=== PATIENT | male | born 1995 | race Caucasian/White ===

== ENCOUNTER 2019-12-21 11:27 | Emergency (ER) | payer OTHER, SELFPAY ==
[2019-12-21 11:39] VITALS: BP 155/76; PULSE 103; RESP 18; TEMP 37; O2SAT 99; BMI 22.2
--- NOTE | 2019-12-21 11:46 | ED.ABDPAIN ---
HPI - Abdominal Pain <KSUH Singleton - Last Filed: 12/21/19 13:29> General Chief Complaint: Abdominal Pain Stated Complaint: Stomach pains x5 days comes & goes Time Seen by Provider: 12/21/19 11:32 Source: patient Mode of arrival: Ambulatory Limitations: no limitations History of Present Illness HPI narrative: 24yo male presents to the emergency department complaining of diffuse ?stomach-ache for the past 7 days. 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 However, the pain resolved after 2 days and he developed a generalized intermittent stomach discomfort with 2 days of intermittent diarrhea. Patient states he does not have any pain at this time. When it does occur, sometimes it does radiate down to his right side of his groin. Patient states that the pain is worse at midnight and in the morning, resolved after eating food. He denies any vomiting, nausea, chest pain, shortness of breath, cough, fever, scrotal swelling, scrotal pain, penile discharge, dizziness, or any other concerns. Patient denies any abdominal surgery or history of abdominal complaints. Related Data Previous Rx's Medication Instructions Recorded famotidine [Pepcid] 20 mg PO BEDTIME #14 tab 12/21/19 Allergies Allergy/AdvReac Type Severity Reaction Status Date / Time No Known Drug Allergies Allergy Verified 12/21/19 11:39 Review of Systems <KUSH Singleton - Last Filed: 12/21/19 13:29> Review of Systems Narrative: REVIEW OF SYSTEMS: GENERAL: Denies fever or chills. HENT: No head trauma. EYES: No vision changes. CARDIOVASCULAR: No chest pain. RESPIRATORY: No shortness of breath or cough. GASTROINTESTINAL: Complains of diffuse intermittent abdominal pain and diarrhea, see HPI GENITOURINARY: No flank pain, dysuria, or penile discharge MUSCULOSKELETAL: No trauma. INTEGUMENTARY: No rash, lesions, or pruritus. NEURO: No headaches. Patient History <KUSH Singleton - Last Filed: 12/21/19 13:29> Medical History No significant medical problems (Acute) Social History Smoking Status: Never smoker Smoking Status: Never smoker alcohol intake frequency: a few times a month Substance Use Type: marijuana Exam <KUSH Singleton - Last Filed: 12/21/19 13:29> Initial Vital Signs Initial Vital Signs: Vital Signs Temperature 98.6 F 12/21/19 11:39 Pulse Rate 103 H 12/21/19 11:39 Respiratory Rate 18 12/21/19 11:39 Blood Pressure 155/76 H 12/21/19 11:39 Pulse Oximetry 99 12/21/19 11:39 PHYSICAL EXAMINATION: GENERAL: Well groomed, alert, and cooperative. Answers questions promptly and appropriately. Vital signs noted. HENT: Normocephalic, atraumatic. Hearing intact. Oral mucosa is pink and moist. EYES: Conjunctiva pink, sclera white, no periorbital swelling. CARDIOVASCULAR: S1 and S2 sounds normal. Regular rate and rhythm, no murmurs, clicks, or bruits. No pedal edema. RESPIRATORY: Normal respiratory rate, trachea midline, airway patent. No stridor, nasal flaring or accessory muscle use. Lungs are clear in all [place] without wheeze, rhonchi, or crackles. GASTROINTESTINAL: Bowel sounds normoactive. Abdomen is soft and non-tender. No organomegaly, no palpable masses. GENITALURINARY: No flank tenderness. MUSCULOSKELETAL: Normal gait and coordination. Equal tone and mass bilaterally. EXTREMITIES: CMS intact, no pedal edema. SKIN: Warm, dry, soft, appropriate color for ethnicity. No lesions, rashes, or wounds to visualized areas. NEURO: Alert and Oriented X 3. Good coordination. No ataxia, or sensory deficits, or cognitive issues. PSYCH: Patient has a slightly anxious affect. Reports that he is nervous when he has to see the doctor. <Walker Marcum MD - Last Filed: 12/21/19 18:59> Initial Vital Signs Initial Vital Signs: Vital Signs Temperature 98.6 F 12/21/19 11:39 Pulse Rate 103 H 12/21/19 11:39 Respiratory Rate 18 12/21/19 11:39 Blood Pressure 155/76 H 12/21/19 11:39 Pulse Oximetry 99 12/21/19 11:39 Course <KUSH Singleton - Last Filed: 12/21/19 13:29> Course Course Narrative: Patient initially given IV fluids. Patient re-evaluated on 1250: Patient continued to deny pain, re-examination of abdomen was nontender which was consistent with original examination. Discussed ordering GI cocktail and Protonix. 1320: Patient reported he still has not had any pain. Agreed with plan to discharge with medications and follow-up. Orders Ordered: ED Orders 12/21/19 11:50 Complete Blood Count AUTO DIFF Stat Comprehensive Metabolic Panel Stat Lipase Stat Discontinued Medications Al Hydrox/Mg Hydrox/Simethicone 20 ml/ Lidocaine HCl 15 ml 0 ml PO NOW ONE Stop: 12/21/19 12:42 Last Admin: 12/21/19 12:57 Dose: 35 ml Documented by: KAROLINE Sodium Chloride (Normal Saline 0.9%) 1,000 mls @ 1,000 mls/hr IV BOLUS ONE Stop: 12/21/19 12:44 Last Infusion: 12/21/19 13:12 Dose: 0 mls/hr Documented by: Admin: 12/21/19 12:03 Dose: 1,000 mls/hr Documented by: TWAN Pantoprazole Sodium (Protonix) 40 mg IV NOW ONE Stop: 12/21/19 12:52 Last Admin: 12/21/19 12:57 Dose: 40 mg Documented by: KAROLINE Consultations Consultation #1: [id number] Marcum, discuss treating within acid reducing medication and discharging patient with close follow-up. Vital Signs Vital signs: Vital Signs - 8 hr 12/21/19 11:39 12/21/19 12:30 12/21/19 13:32 Temperature 98.6 F Pulse Rate 103 H 76 82 Respiratory Rate 18 18 16 Blood Pressure 155/76 H 128/61 Blood Pressure [Left Arm] 127/67 Pulse Oximetry 99 99 99 <Walker Marcum MD - Last Filed: 12/21/19 18:59> Orders Ordered: ED Orders 12/21/19 11:50 Complete Blood Count AUTO DIFF Stat Comprehensive Metabolic Panel Stat Lipase Stat Discontinued Medications Al Hydrox/Mg Hydrox/Simethicone 20 ml/ Lidocaine HCl 15 ml 0 ml PO NOW ONE Stop: 12/21/19 12:42 Last Admin: 12/21/19 12:57 Dose: 35 ml Documented by: KAROLINE Sodium Chloride (Normal Saline 0.9%) 1,000 mls @ 1,000 mls/hr IV BOLUS ONE Stop: 12/21/19 12:44 Last Infusion: 12/21/19 13:12 Dose: 0 mls/hr Documented by: Admin: 12/21/19 12:03 Dose: 1,000 mls/hr Documented by: TWAN Pantoprazole Sodium (Protonix) 40 mg IV NOW ONE Stop: 12/21/19 12:52 Last Admin: 12/21/19 12:57 Dose: 40 mg Documented by: KAROLINE Vital Signs Vital signs: Vital Signs - 8 hr 12/21/19 11:39 12/21/19 12:30 12/21/19 13:32 Temperature 98.6 F Pulse Rate 103 H 76 82 Respiratory Rate 18 18 16 Blood Pressure 155/76 H 128/61 Blood Pressure [Left Arm] 127/67 Pulse Oximetry 99 99 99 MDM - Abdominal Pain <KUSH Singleton - Last Filed: 12/21/19 13:29> Medical Records Attestation: I reviewed the patient's medical records. Lab Data Attestation: I reviewed the patient's lab results. Result diagrams: 12/21/19 11:50 12/21/19 11:50 Labs: Lab Results 12/21/19 12/21/19 Range/Units 11:50 11:50 WBC 9.8 (4.5-11.0) X10^3/uL RBC 4.81 (4.5-5.9) X10^6/uL Hgb 15.2 (13.5-17.5) g/dL Hct 43.6 (41-53) % MCV 90.6 (80-100) fL MCH 31.7 (26-34) PG MCHC 35.0 (30-36) % RDW 13.1 (11.6-14.8) % Plt Count 250 (150-400) X10^3/uL Neut % (Auto) 66.4 (50-75) % Lymph % (Auto) 25.5 (25-40) % [place] % (Auto) 7.0 (3-14) % Eos % (Auto) 0.7 L (2-4) % Baso % (Auto) 0.4 (0-2) % Neut # (Auto) 6500 (8407-4842) /uL Lymph # (Auto) 2500 (2244-0128) /uL [place] # (Auto) 700 (0-900) /uL Eos # (Auto) 100 (0-450) /uL Baso # (Auto) 0 (0-100) /uL Sodium 138 (137-145) mmol/L Potassium 3.7 (3.4-5.1) mmol/L Chloride 103 (98-107) mmol/L Carbon Dioxide 25 (22-32) mmol/L BUN 14 (9-20) mg/dL Creatinine 0.64 L (0.66-1.25) mg/dL Estimated GFR > 60.0 (>60) mL/min BUN/Creatinine Ratio 21.9 (6-22) Glucose 131 H (70-100) mg/dL Calcium 10.1 (8.4-10.2) mg/dL Total Bilirubin 0.9 (0.2-1.3) mg/dL AST 33 (17-59) IU/L ALT 14 (<50) IU/L Alkaline Phosphatase 65 (38-126) U/L Total Protein 8.4 H (6.3-8.2) g/dL Albumin 5.2 H (3.5-5.0) g/dL Globulin 3.2 (1.7-4.1) g/dL Albumin/Globulin Ratio 1.6 (1.0-2.8) Lipase 54 (23-300) U/L Point of care testing: Urine Dip Bedside Urine Glucose 100 mg/dl Bedside Urine Bilirubin - Negative Bedside Urine Ketone + 15 Urine Specific [place] 1.015 Bedside Urine Occult Blood - Negative Bedside Urine pH 6.5 Bedside Urine Protein - Negative Bedside Urine Urobilinogen - Negative Bedside Urine Nitrite - Negative Bedside Urine Leukocytes - Negative Esterase MDM Narrative Medical decision making narrative: 24-year-old healthy male presents to the emergency department for history of abdominal discomfort which has resolved upon presentation. Laboratory work is within normal limits, albumin at 5.2 which is physiologically within normal limits, also may be contributed to dehydration as supported by trace ketones found in urine. Less likely acute abdominal etiology due to normal labs and benign abdominal examination without any tenderness, patient also remained pain-free throughout the emergency department stay. Less likely hernia due to reports of diffuse pain, no reports of bulge, no mass found on palpation. Less likely renal calculi or urinary tract infection as urine is clean, no CVA tenderness, no reports of dysuria. Less likely sepsis due to lack of fever and chills. Patient was initially slightly tachycardic upon admission to emergency department, however, he reported he has white coat anxiety. After administration of fluids, patient's heart rate was 76. Patient was discharged with Pepcid as he reported his pain was worse at midnight in the morning, indicating possible dyspepsia versus viral gastroenteritis versus stomach ulcer (less likely due to short duration since onset of pain, no history of ulcers, no reports of vomiting, no blood in stool). We discussed close follow-up. Patient agreed to plan of care verbalized understanding. <Walker Marcum MD - Last Filed: 12/21/19 18:59> Lab Data Labs: Lab Results 12/21/19 12/21/19 Range/Units 11:50 11:50 WBC 9.8 (4.5-11.0) X10^3/uL RBC 4.81 (4.5-5.9) X10^6/uL Hgb 15.2 (13.5-17.5) g/dL Hct 43.6 (41-53) % MCV 90.6 (80-100) fL MCH 31.7 (26-34) PG MCHC 35.0 (30-36) % RDW 13.1 (11.6-14.8) % Plt Count 250 (150-400) X10^3/uL Neut % (Auto) 66.4 (50-75) % Lymph % (Auto) 25.5 (25-40) % [place] % (Auto) 7.0 (3-14) % Eos % (Auto) 0.7 L (2-4) % Baso % (Auto) 0.4 (0-2) % Neut # (Auto) 6500 (2056-7377) /uL Lymph # (Auto) 2500 (2885-8426) /uL [place] # (Auto) 700 (0-900) /uL Eos # (Auto) 100 (0-450) /uL Baso # (Auto) 0 (0-100) /uL Sodium 138 (137-145) mmol/L Potassium 3.7 (3.4-5.1) mmol/L Chloride 103 (98-107) mmol/L Carbon Dioxide 25 (22-32) mmol/L BUN 14 (9-20) mg/dL Creatinine 0.64 L (0.66-1.25) mg/dL Estimated GFR > 60.0 (>60) mL/min BUN/Creatinine Ratio 21.9 (6-22) Glucose 131 H (70-100) mg/dL Calcium 10.1 (8.4-10.2) mg/dL Total Bilirubin 0.9 (0.2-1.3) mg/dL AST 33 (17-59) IU/L ALT 14 (<50) IU/L Alkaline Phosphatase 65 (38-126) U/L Total Protein 8.4 H (6.3-8.2) g/dL Albumin 5.2 H (3.5-5.0) g/dL Globulin 3.2 (1.7-4.1) g/dL Albumin/Globulin Ratio 1.6 (1.0-2.8) Lipase 54 (23-300) U/L Point of care testing: Urine Dip Bedside Urine Glucose 100 mg/dl Bedside Urine Bilirubin - Negative Bedside Urine Ketone + 15 Urine Specific [place] 1.015 Bedside Urine Occult Blood - Negative Bedside Urine pH 6.5 Bedside Urine Protein - Negative Bedside Urine Urobilinogen - Negative Bedside Urine Nitrite - Negative Bedside Urine Leukocytes - Negative Esterase Discharge Plan Departure Patient Disposition: Home Clinical Impression: Gastroenteritis Discharge Date/Time: 12/21/19 13:36 Instructions: DI for Abdominal Pain-Adult Activity Restrictions/Additional Instructions: Thank you for entrusting me with your care today. As discussed, I am unsure the exact cause of your abdominal pain. Your laboratory work was non-remarkable. Your symptoms may be caused by a virus or increased stomach acid. I have prescribed you an acid plastic dolls mold filler, please take this for the next two weeks. Please try to establish care with a primary care provider for re-evaluation. If symptoms worsen (worsening abdominal pain, blood in stool, change of pain, fevers, or any other concerns) and/or cannot be a evaluated by your primary care provider and symptoms continue, please return to the emergency department. Prescriptions: New famotidine [Pepcid] 20 mg tablet 20 mg PO BEDTIME Qty: 14 RF: 0
[2019-12-21 11:59] LABS: Add Manual Diff / Slide Review NO; Basophils Absolute Auto 0 /uL (0-100); Basophils Percent Auto 0.4 % (0-2); Eosinophils Absolute Auto 100 /uL (0-450); Eosinophils Percent Auto 0.7 % (2-4); Hematocrit 43.6 % (41-53); Hemoglobin 15.2 g/dL (13.5-17.5); Lymphocytes Absolute Auto 2500 /uL (1100-4500); Lymphocytes Percent Auto 25.5 % (25-40); Mean Corpuscular Hemoglobin 31.7 PG (26-34); Mean Corpuscular Volume 90.6 fL (80-100); Monocytes Absolute Auto 700 /uL (0-900); Neutrophils Absolute Auto 6500 /uL (1500-7000); Neutrophils Percent Auto 66.4 % (50-75); Platelet Count 250 X10^3/uL (150-400); Red Blood Cell Count 4.81 X10^6/uL (4.5-5.9); Red Cell Distribution Width 13.1 % (11.6-14.8); White Blood Cell Count 9.8 X10^3/uL (4.5-11.0)
[2019-12-21] MEDS: SODIUM CHLORIDE 0.9% 1,000 ML 1000 ML IV (12:03)
[2019-12-21 12:16] LABS: Alanine Aminotransferase 14 IU/L (<50); Albumin 5.2 g/dL (3.5-5.0); Albumin Globulin Ratio 1.6 (1.0-2.8); Alkaline Phosphatase 65 U/L (38-126); Aspartate Aminotransferase 33 IU/L (17-59); BUN Creatinine Ratio 21.9 (6-22); Bilirubin Total 0.9 mg/dL (0.2-1.3); Blood Urea Nitrogen 14 mg/dL (9-20); Calcium 10.1 mg/dL (8.4-10.2); Carbon Dioxide 25 mmol/L (22-32); Chloride 103 mmol/L (98-107); Estimated Glomerular Filt Rate > 60.0 mL/min (>60); Globulin 3.2 g/dL (1.7-4.1); Glucose 131 mg/dL (70-100); HEMOLYSIS 27 (0-50); Lipase 54 U/L (23-300); Potassium 3.7 mmol/L (3.4-5.1); Sodium 138 mmol/L (137-145); Total Protein 8.4 g/dL (6.3-8.2)
[2019-12-21 12:30] VITALS: BP 127/67; PULSE 76; RESP 18; O2SAT 99
[2019-12-21] MEDS: MAG HYDROX/ALUMINUM/SIMETH SUS 20 ML, LIDOCAINE VISCOUS 2% 15 ML PO (12:57)
[2019-12-21] MEDS: PANTOPRAZOLE 40 MG VIAL IV (12:57)
[2019-12-21 13:32] VITALS: BP 128/61; PULSE 82; RESP 16; O2SAT 99
== END 2019-12-21 13:36 | disposition home or self-care (01) ==
PROVIDERS: Emergency Provider Nurse Practitioner
DX: K52.9 Noninfective gastroenteritis and colitis, unspecified (principal)
CPT/HCPCS: 36415; 80053; 81003; 83690; 85025; 96361; 96374; 99284; C9113